=== PATIENT | female | born 2000 | race Two or more races ===

== ENCOUNTER 2019-11-29 21:14 | Emergency (ER) | payer MEDICAID, OTHER ==
[~2019-11-29] VITALS: Ht 165.1 cm; Wt 122.5 kg
[2019-11-29] MEDS ORDERED: ACETAMINOPHEN 325 MG TAB PO ONE (21:45)
[2019-11-30] MEDS ORDERED: cefTRIAXone SOD 1,000 MG VL IM ONE (01:15)
[2019-11-30] MEDS ORDERED: IBUPROFEN 600 MG TAB PO ONE (01:15)
[2019-11-30] MEDS ORDERED: methylPREDNISolone SOD SUCC 125 MG/2 ML VL IM ONE (01:15)
[2019-11-30] MEDS ORDERED: LIDOCAINE 1% HCL (LOCAL ANESTH.) INJ 20ML MDV ONE (01:16)
[2019-11-30] MEDS ORDERED: ACETAMINOPHEN 500 MG TAB PO ONE (01:45)
[2019-11-30] MEDS ORDERED: LIDOCAINE 1% HCL (LOCAL ANESTH.) INJ 20ML MDV IJ ONE (02:00)
[2019-11-30 02:05] LABS: Basophils # (auto) 0 10 ^3/uL (0-0.2); Basophils % (auto) 0.5 % (0.0-2.0); Eosinophils # (auto) 0.1 10 ^3/uL (0-0.8); Eosinophils % (auto) 0.9 % (0.0-7.0); Hematocrit 40.5 % (36.0-46.0); Hemoglobin 13.7 g/dL (12.2-16.2); Lymphocytes # (auto) 1.8 10 ^3/uL (0.4-5.4); Lymphocytes % (auto) 30.3 % (10.0-50.0); Mean Corpuscular Hemoglobin 28.4 pg (28.0-32.0); Mean Corpuscular Hgb Conc. 33.9 g/dL (32.0-36.0); Mean Corpuscular Volume 83.9 fL (80.0-100.0); Monocytes # (auto) 0.5 10 ^3/uL (0-1.3); Neutrophils # (auto) 3.5 10 ^3/uL (1.6-8.6); Neutrophils % (auto) 60.3 % (37.0-80.0); Nucleated Red Blood Cells % 0.1 %; Platelet Count (auto) 146 10^3/uL (140-450); Red Blood Cells 4.83 10^6/uL (4.0-5.20); Red Cell Distribution Width 14.4 % (11.8-14.3); White Blood Cell 5.8 10^3/uL (4.4-10.8)
[2019-11-30 02:21] LABS: Albumin 3.9 g/dL (3.4-5.0); BUN/Creatinine Ratio 10.1; Calcium 8.4 mg/dL (8.5-10.1); Potassium 3.6 mmol/L (3.5-5.1)
[2019-11-30 02:29] LABS: Bilirubin, Total 0.5 mg/dL (0.2-1.0); Total Protein 8.9 g/dL (6.4-8.2)
[2019-11-30 04:00] VITALS: BP 156/78
== END 2019-11-30 04:08 | disposition home or self-care (01) ==
LOC: ER 21:14
DX: U07.1 COVID-19 (principal); J98.11 Atelectasis; E86.0 Dehydration
CPT/HCPCS: 36415; 71045; 80053; 85025; 87070; 87804; 87880; 96372; 99284; J0696; J2001; J2930; U0003

== ENCOUNTER 2019-12-01 15:14 | Inpatient (IN) | payer MEDICAID ==
[~2019-12-01] VITALS: Ht 165.1 cm; Wt 123.4 kg
[2019-12-01] MEDS ORDERED: SODIUM CHLORIDE 0.9% 1,000 ML IV ONE ×2 (15:21)
[2019-12-01] MEDS ORDERED: hydrOXYchloroQUINE SULFATE 200 MG TAB PO ONE (15:30)
[2019-12-01] MEDS ORDERED: BUDESONIDE (INHALATION) 0.5 MG/2 ML NEB NEB ONE (15:30)
[2019-12-01] MEDS ORDERED: DOXYCYCLINE 100 MG TAB/CAP PO ONE (15:30)
[2019-12-01] MEDS ORDERED: ACETAMINOPHEN 500 MG TAB PO ONE (16:45)
[2019-12-01 16:47] LABS: Basophils # (auto) 0 10 ^3/uL (0-0.2); Basophils % (auto) 0.2 % (0.0-2.0); Eosinophils # (auto) 0 10 ^3/uL (0-0.8); Hematocrit 41.7 % (36.0-46.0); Hemoglobin 14.1 g/dL (12.2-16.2); Lymphocytes # (auto) 1.2 10 ^3/uL (0.4-5.4); Lymphocytes % (auto) 12.6 % (10.0-50.0); Mean Corpuscular Hemoglobin 28.4 pg (28.0-32.0); Mean Corpuscular Hgb Conc. 33.9 g/dL (32.0-36.0); Mean Corpuscular Volume 83.8 fL (80.0-100.0); Monocytes # (auto) 0.7 10 ^3/uL (0-1.3); Neutrophils # (auto) 7.5 10 ^3/uL (1.6-8.6); Neutrophils % (auto) 80.2 % (37.0-80.0); Nucleated Red Blood Cells % 0.1 %; Platelet Count (auto) 170 10^3/uL (140-450); Red Blood Cells 4.98 10^6/uL (4.0-5.20); Red Cell Distribution Width 14.5 % (11.8-14.3); White Blood Cell 9.4 10^3/uL (4.4-10.8)
[2019-12-01 17:03] LABS: Albumin 3.7 g/dL (3.4-5.0); Calcium 8.4 mg/dL (8.5-10.1); Potassium 3.7 mmol/L (3.5-5.1)
[2019-12-01 17:11] LABS: BUN/Creatinine Ratio 9.1; Bilirubin, Total 0.5 mg/dL (0.2-1.0); CRP High Sensitivity 2.31 mg/dL (< 0.3); Total Protein 8.9 g/dL (6.4-8.2)
[2019-12-01] MEDS ORDERED: PROMETHAZINE W/CODEINE 5 ML ORAL SYRUP PO ONE (18:45)
[2019-12-01] MEDS ORDERED: cefTRIAXone 1GM/50ML D5W 50 ML IV SCH (18:45)
[2019-12-01] MEDS ORDERED: HYDROmorphone HCL 2 MG/ML VL IV PRN (19:00)
[2019-12-01] MEDS ORDERED: HYDROcodone-ACET 5/325MG TAB PO PRN (19:00)
[2019-12-01] MEDS ORDERED: MORPHINE SULF INJ 2 MG/ML SYRINGE 1ML IV PRN ×2 (19:00)
[2019-12-01] MEDS ORDERED: NITROGLYCERIN 0.4 MG SL TAB SL PRN (19:00)
[2019-12-01] MEDS ORDERED: DOCUSATE SOD 100 MG CAP PO PRN (19:00)
[2019-12-01] MEDS ORDERED: ONDANSETRON HCL 4 MG/2 ML VIAL IV PRN (19:00)
[2019-12-01] MEDS ORDERED: TEMAZEPAM 15 MG CAP PO PRN (19:00)
[2019-12-01 19:09] LABS: INR 1.01 (0.9-1.15); Partial Thromboplastin Time 32.5 sec (23.64-32.05)
[2019-12-01] MEDS: cefTRIAXone 1GM/50ML D5W 50 ML IV SCH (19:46)
[2019-12-01 20:35] VITALS: BP 139/77
--- NOTE | 2019-12-01 20:35 | NUR ---
Telemetry admit from SHIMA MARTIN admitted to Telemetry unit. Patient oriented to YAMILEX GUNN RN primary RN, unit, room, bed, and unit policies regarding patient care and visiting hours. Patient now on continuous telemetry monitoring, tele box # 7 and telemetry reading on arrival to unit is sinus tachycardia. Patient placed on bedside oxygen at 2 liters via long tubing nasal cannula, patient's pulse oxygenation at 96%. Patient also weighed by bedscale and encouraged to call if they need something. All questions and concerns addressed, patient verbalized understanding. Bed in lowest locked position, side rails up x2, call light within reach. COVID [address] Will round every hour and as needed and continue to monitor.
[2019-12-01 21:45] VITALS: BP 152/101
[2019-12-01 22:00] VITALS: BP 139/77
[2019-12-01] MEDS ORDERED: REMDESIVIR 200 MG in NS 210ml LOADING DOSE ADULT IV ONE ×2 (22:00→23:00)
[2019-12-01] MEDS: SODIUM CHLOR 0.9% PF (SALINE LOCK) 10ML VIAL/SYR IV SCH (22:00)
[2019-12-01] MEDS: ALBUTEROL SULF HFA 90MCG INH 200DOSE IN SCH (22:11)
[2019-12-01] MEDS: BUDESONIDE (INHALATION) 180 MCG IH IN SCH (22:11)
[2019-12-01] MEDS: ACETAMINOPHEN 500 MG TAB PO PRN (23:29)
[2019-12-01] MEDS: PROMETHAZINE W/CODEINE 5 ML ORAL SYRUP PO SCH (23:29)
[2019-12-01] MEDS: DOXYCYCLINE 100 MG TAB/CAP PO SCH (23:30)
[2019-12-01] MEDS: ENOXAPARIN SOD 120 MG/0.8 ML SYRINGE SC SCH (23:30)
--- NOTE | 2019-12-01 23:30 | NUR ---
Ordered Remdesivir started at this time. Temperature 103.0 degrees Farenheit orally, 119 HR, 20 RR, 148/68 mm Hg, 96% pulse oxygenation. Tylenol PRN administered as ordered (see emar). Ice packs and cool wash clothes applied, blankets removed, temperature of room decreased, and ice water given to patient. No s/s of distress. Will continue to monitor.
--- NOTE | 2019-12-01 23:45 | NUR ---
Ordered Remdesivir continuing to infuse. Temperature 99.0 degrees Fahrenheit orally, 118 HR, 20 RR, 136/83 mm Hg, 94% pulse oxygenation. No s/s of distress. Will continue to monitor.
--- NOTE | 2019-12-02 00:30 | NUR ---
Ordered Remdesivir finished infusing at this time. Temperature 100.0 degrees Fahrenheit orally, 114 HR, 18 RR, 134/81 mm Hg, 94% pulse oxygenation. Cooling measures remain in place. No s/s of distress. Will continue to monitor.
[2019-12-02 02:05] LABS: Urine Bacteria NONE SEEN /hpf (None Seen); Urine Blood Negative /uL (Negative); Urine Mucus FEW (None Seen); Urine Specific Gravity 1.012 (1.001-1.035); Urine WBC 1 /hpf (0 - 5)
[2019-12-02 05:00] VITALS: BP 125/82
[2019-12-02] MEDS: SODIUM CHLOR 0.9% PF (SALINE LOCK) 10ML VIAL/SYR IV SCH ×3 (06:00→21:18)
[2019-12-02] MEDS: BUDESONIDE (INHALATION) 180 MCG IH IN SCH ×2 (06:25→22:00)
[2019-12-02] MEDS: ALBUTEROL SULF HFA 90MCG INH 200DOSE IN SCH ×3 (06:25→22:00)
[2019-12-02] MEDS: PROMETHAZINE W/CODEINE 5 ML ORAL SYRUP PO SCH ×3 (06:48→21:19)
--- NOTE | 2019-12-02 06:49 | NUR ---
Closing Note Patient lying in bed, awake and alert. Bed in lowest locked position, call light within reach. No s/s of distress. Will endorse care to dayshift RN.
--- NOTE | 2019-12-02 07:35 | NUR ---
Opening Note Received report from ordnance engineer RN. Patient is awake, alert and oriented x4. Patient is on 4L NC. Patient denies pain at this time. Reviewed plan of care with patient, patient verbalized understanding. Bed in low and locked position, call light within reach. Will continue to monitor Q1 hour and PRN.
[2019-12-02] MEDS: cefTRIAXone 1GM/50ML D5W 50 ML IV SCH (08:29)
[2019-12-02] MEDS: ENOXAPARIN SOD 120 MG/0.8 ML SYRINGE SC SCH ×2 (08:30→21:20)
[2019-12-02] MEDS: CHOLECALCIFEROL (VITD3) 2,000 UNIT CAP PO SCH (08:30)
[2019-12-02] MEDS: ZINC SULFATE 220mg CAP or TAB PO SCH (08:30)
[2019-12-02] MEDS: ASCORBIC ACID 1,000 MG TAB PO SCH (08:30)
[2019-12-02] MEDS: DOXYCYCLINE 100 MG TAB/CAP PO SCH ×2 (08:31→21:20)
[2019-12-02 09:00] VITALS: BP 133/87
[2019-12-02 10:16] LABS: Basophils # (auto) 0 10 ^3/uL (0-0.2); Basophils % (auto) 0.3 % (0.0-2.0); Eosinophils # (auto) 0 10 ^3/uL (0-0.8); Eosinophils % (auto) 0.1 % (0.0-7.0); Hemoglobin 12.4 g/dL (12.2-16.2); Lymphocytes % (auto) 22.4 % (10.0-50.0); Mean Corpuscular Hemoglobin 28.4 pg (28.0-32.0); Mean Corpuscular Hgb Conc. 34.3 g/dL (32.0-36.0); Mean Corpuscular Volume 82.9 fL (80.0-100.0); Monocytes # (auto) 0.7 10 ^3/uL (0-1.3); Monocytes % (auto) 7.8 % (0.0-12.0); Neutrophils # (auto) 6.3 10 ^3/uL (1.6-8.6); Neutrophils % (auto) 69.4 % (37.0-80.0); Nucleated Red Blood Cells % 0.2 %; Platelet Count (auto) 147 10^3/uL (140-450); Red Blood Cells 4.35 10^6/uL (4.0-5.20); Red Cell Distribution Width 14.4 % (11.8-14.3)
[2019-12-02 10:46] LABS: Albumin 3.1 g/dL (3.4-5.0); Calcium 7.9 mg/dL (8.5-10.1); Potassium 3.5 mmol/L (3.5-5.1)
[2019-12-02 10:49] LABS: BUN/Creatinine Ratio 12.2; Bilirubin, Total 0.7 mg/dL (0.2-1.0); Total Protein 7.9 g/dL (6.4-8.2)
[2019-12-02] MEDS: ACETAMINOPHEN 500 MG TAB PO PRN (12:14)
[2019-12-02 13:13] VITALS: BP 149/85
[2019-12-02 17:00] VITALS: BP 117/80
[2019-12-02] MEDS: REMDESIVIR 100mg in NS 230ml DAILYx4DAYS (NO VENT) IV SCH (17:39)
--- NOTE | 2019-12-02 17:40 | NUR ---
Remdesiver started Medication administered per orders. Patient verbalized understanding of medication and possible side effects. Blood pressure 118/77, heart rate 89, oxygen saturation 92% on 4L NC, respirations 16, temperature 98.1. Will continue to monitor Q1 and PRN.
--- NOTE | 2019-12-02 17:50 | NUR ---
Remdesivir infusing No signs or symptoms of reaction noted at this time. Blood [id number], heart rate 87, oxygen saturation 91% on 4L NC, respirations 16. Patient educted and instructed to call for assistance if any symptoms of reaction occur. Patient verbalized understanding. Will continue to monitor Q1 hour and PRN.
--- NOTE | 2019-12-02 18:47 | NUR ---
Remdesivir completed No signs or symptoms of reaction noted at this time. Patient tolerated well. Blood pressure 126/80, heart rate 99, oxygen satuation 92% on 4L NC, respirations 16. Will continue to monitor Q1 hour and PRN.
--- NOTE | 2019-12-02 19:07 | NUR ---
Closing Note Report given to sugar mill worker RN. No signs or symptoms of distress noted at this time.
[2019-12-02 22:00] VITALS: BP 119/70
--- NOTE | 2019-12-02 22:19 | NUR ---
Spoke with Destiny from [facility] regarding patient's convalescent plasma order. Per Destiny, patient will need a type and screen and possible confirmation for [facility] that patient is COVID positive on this visit. Destiny was able to view that the patient did test positive on 11/30/19 and that the COVID swab was sent out to [facility] for processing. Destiny was not certain if a second positive COVID swab would be necessary for [facility] to allow for the release of the convalescent plasma for the patient. Informed Charge Nurse Francine SPRAGUE, per Francine orozco RN follow up with MD in the morning for clarification. Consents for convalescent plasma printed and placed in the front of patient's hard chart. Will continue to monitor patient.
[2019-12-03 05:00] VITALS: BP 111/72
[2019-12-03 05:39] LABS: BUN/Creatinine Ratio 14.5; Calcium 8.2 mg/dL (8.5-10.1); Potassium 3.4 mmol/L (3.5-5.1)
[2019-12-03 05:48] LABS: CRP High Sensitivity 7.66 mg/dL (< 0.3)
[2019-12-03] MEDS: SODIUM CHLOR 0.9% PF (SALINE LOCK) 10ML VIAL/SYR IV SCH ×3 (06:21→21:58)
[2019-12-03] MEDS: PROMETHAZINE W/CODEINE 5 ML ORAL SYRUP PO SCH ×3 (06:24→21:58)
[2019-12-03] MEDS: ALBUTEROL SULF HFA 90MCG INH 200DOSE IN SCH ×3 (06:40→21:19)
[2019-12-03] MEDS: BUDESONIDE (INHALATION) 180 MCG IH IN SCH ×2 (06:41→21:19)
--- NOTE | 2019-12-03 06:48 | NUR ---
Closing Note Patient lying in bed, awake and alert. Bed in lowest locked position, side rails up x2, call light within reach. No s/s of distress. Will endorse care to dayshift RN.
[2019-12-03 08:45] VITALS: BP 111/71
[2019-12-03] MEDS: ZINC SULFATE 220mg CAP or TAB PO SCH (10:59)
[2019-12-03] MEDS: CHOLECALCIFEROL (VITD3) 2,000 UNIT CAP PO SCH (10:59)
[2019-12-03] MEDS: ASCORBIC ACID 1,000 MG TAB PO SCH (10:59)
[2019-12-03] MEDS: DOXYCYCLINE 100 MG TAB/CAP PO SCH ×2 (10:59→21:58)
[2019-12-03] MEDS: ENOXAPARIN SOD 120 MG/0.8 ML SYRINGE SC SCH ×2 (10:59→21:58)
[2019-12-03 12:58] VITALS: BP 111/78
[2019-12-03 17:07] VITALS: BP 116/71
[2019-12-03] MEDS: REMDESIVIR 100mg in NS 230ml DAILYx4DAYS (NO VENT) IV SCH (17:25)
--- NOTE | 2019-12-03 17:25 | NUR ---
PRE ADMINISTRATION REMDESIVIR VITALS: T98.1, HR65, RR20, O2 97%, BP 116/71
--- NOTE | 2019-12-03 18:40 | NUR ---
INTRA REMDESIVIR ADMINISTRATION VITALS: T98.9, HR91, RR18, O2 98%, BP 119/75
--- NOTE | 2019-12-03 19:20 | NUR ---
POST REMDESIVIR ADMINISTRATION VITALS: T98.4, HR86, RR20, O2 97%, BP 113/69. PT TOLERATED WELL. NO S/S OF DISTRESS. WILL ENDORSE TO NIGHT NURSE.
[2019-12-03 22:14] VITALS: BP 120/81
[2019-12-04] VITALS (9 sets, daily range): BP systolic 101–136; BP diastolic 60–76
[2019-12-04] MEDS: SODIUM CHLOR 0.9% PF (SALINE LOCK) 10ML VIAL/SYR IV SCH ×3 (06:10→22:07)
[2019-12-04] MEDS: PROMETHAZINE W/CODEINE 5 ML ORAL SYRUP PO SCH ×3 (06:11→22:07)
[2019-12-04] MEDS: BUDESONIDE (INHALATION) 180 MCG IH IN SCH ×2 (06:29→22:24)
[2019-12-04] MEDS: ALBUTEROL SULF HFA 90MCG INH 200DOSE IN SCH ×3 (06:29→22:24)
[2019-12-04 07:52] LABS: Calcium 8.3 mg/dL (8.5-10.1); Potassium 3.6 mmol/L (3.5-5.1)
[2019-12-04 08:03] LABS: BUN/Creatinine Ratio 14.8; CRP High Sensitivity 4.63 mg/dL (< 0.3)
--- NOTE | 2019-12-04 09:09 | NUR ---
Weekend solutions development analyst-I did not receive a call regarding the social service consult (12/01) for this patient.
[2019-12-04] MEDS: CHOLECALCIFEROL (VITD3) 2,000 UNIT CAP PO SCH (09:33)
[2019-12-04] MEDS: ENOXAPARIN SOD 120 MG/0.8 ML SYRINGE SC SCH (09:33)
[2019-12-04] MEDS: DOXYCYCLINE 100 MG TAB/CAP PO SCH ×2 (09:33→22:07)
[2019-12-04] MEDS: ASCORBIC ACID 1,000 MG TAB PO SCH (09:33)
[2019-12-04] MEDS: ZINC SULFATE 220mg CAP or TAB PO SCH (09:33)
[2019-12-04] MEDS ORDERED: IPRIH IN (12:26)
[2019-12-04] MEDS ORDERED: ALBUAER3 IN (12:26)
[2019-12-04] MEDS ORDERED: DOX100T PO (12:28)
--- NOTE | 2019-12-04 13:26 | NUR ---
LEFT MESSAGE FOR DR ENGEL REGARDING PATIENTS POSSIBLE D/C. PER DR. BOSS, PATIENT OK TO D/C WITH PULMONOLOGY APPROVAL. PATIENTS FAMILY HAS CONCERNS WITH PATIENT COMING HOME TOO SOON, AND PATIENT HAS ONLY RECEIVED 2 OF 4 REMDESIVIR TREATMENTS.
--- NOTE | 2019-12-04 13:31 | NUR ---
PROVIDED UPDATE TO PATIENTS CHELSIE HARDEN,
--- NOTE | 2019-12-04 14:21 | NUR ---
02 SATURATION CHECK 87% WALKING WITHOUT OXYGEN 92% WALKING WITH OXYGEN AT 3L 95% SITTING WITH OXYGEN AT 3L
--- NOTE | 2019-12-04 15:07 | NUR ---
Assessment Patient is a 19- year-old female who is alert and oriented. Prior to admission patient lived home with family and function independently. Per patient she can care for her own ADLs. Per patient she does not have any medical equipment now or home oxygen. Per patient she will return to her prior living arrangements post discharge and family will transport him home. Patient PCP is Dr. Hughes. Advise patient to follow up with her primary doctor after discharge. Advised patient there is a social service consult for home health safety evaluation and home oxygen. Informed patient clinical information will be faxed to contracted agency for [employer] [facility] and [facility] for the oxygen. Informed patient she has the right to participate in all discharge planning. Patient verbalized understanding. Faxed clinical information to [employer] and [facility] requesting [facility] Per Sarah with [employer] [phone] patient has been accepted and service to start within 24-48hrs upon d/c day. Per Lashae with [facility] [phone] they will deliver oxygen portable to front lobby between 15:30-16:30 and concentrate to home between. CELESTINE Marquez was informed. Addendum: 12/04/19 at 1520 by BRITTANY BURNETT Amended: Links added.
--- NOTE | 2019-12-04 15:22 | NUR ---
obatin authorization from [facility] for [facility] [id number] and [facility] [id number].
--- NOTE | 2019-12-04 16:02 | NUR ---
O2 DELIVERED PER BRITTANY IN , PATIENTS O2 FOR HOME HAS BEEN DELIVERED AND IS DOWNSTAIRS AT THE VOLUNTEER DESK
[2019-12-04] MEDS: REMDESIVIR 100mg in NS 230ml DAILYx4DAYS (NO VENT) IV SCH (17:10)
--- NOTE | 2019-12-04 19:13 | NUR ---
PATIENTS HOME 02 BEDSIDE WITH PATIENT FOR D/C
--- NOTE | 2019-12-04 20:00 | NUR ---
Opening Shift Note Assumed care of patient, awake and alert x4. Patient denies shortness of breath or pain at this time. No sign/symptoms of distress noted or verbalized at this time. Instructed on plan of care and encouraged patient to call for assistance as needed, patient verbalized understanding. Oxygen tank noted at the bedside. Per patient oxygen concentrator has been delivered to her house. Bed is locked in lowest position, side rails x 2 are up, and call light is within reach.
--- NOTE | 2019-12-04 20:13 | NUR ---
Paged Dr. Dos Santos Left message on Dr. Dos Santos's exchange regarding clearance from pulmonology stand point. Left call back number and extension, awaiting call back.
--- NOTE | 2019-12-04 22:24 | NUR ---
RT NOTE PT WAS SEEN BY RT FOR MDI TX. PT TOLERATES WELL VIA SPACER. PT RINSED MOUTH WITH WATER POST MDI TX. HR 90, RR18, BS CLEAR/DIMINISHED, POX 96% ON 2L NASAL CANNULA. CONT ORDERED Addendum: 12/04/19 at 2235 by Marnie Calle RT Amended: Links added.
--- NOTE | 2019-12-04 22:25 | NUR ---
Left Message on Dr. Garcia's exchange Left message on Dr. Garcia's exchange regarding discharge order and obtaining clearance from tile professional stand point. Left call back number and extension. Awaiting call back.
[2019-12-05] VITALS (8 sets, daily range): BP systolic 108–121; BP diastolic 57–78
[2019-12-05 05:03] LABS: Basophils # (auto) 0 10 ^3/uL (0-0.2); Basophils % (auto) 0.4 % (0.0-2.0); Eosinophils # (auto) 0.3 10 ^3/uL (0-0.8); Eosinophils % (auto) 4.3 % (0.0-7.0); Hematocrit 35.4 % (36.0-46.0); Hemoglobin 11.9 g/dL (12.2-16.2); Lymphocytes # (auto) 1.6 10 ^3/uL (0.4-5.4); Lymphocytes % (auto) 26.6 % (10.0-50.0); Mean Corpuscular Hemoglobin 28.2 pg (28.0-32.0); Mean Corpuscular Hgb Conc. 33.7 g/dL (32.0-36.0); Mean Corpuscular Volume 83.8 fL (80.0-100.0); Monocytes # (auto) 0.6 10 ^3/uL (0-1.3); Monocytes % (auto) 10.2 % (0.0-12.0); Neutrophils # (auto) 3.5 10 ^3/uL (1.6-8.6); Neutrophils % (auto) 58.5 % (37.0-80.0); Nucleated Red Blood Cells % 0.1 %; Platelet Count (auto) 209 10^3/uL (140-450); Red Blood Cells 4.22 10^6/uL (4.0-5.20); Red Cell Distribution Width 14.1 % (11.8-14.3)
[2019-12-05] MEDS: SODIUM CHLOR 0.9% PF (SALINE LOCK) 10ML VIAL/SYR IV SCH ×2 (06:07→13:53)
[2019-12-05] MEDS: PROMETHAZINE W/CODEINE 5 ML ORAL SYRUP PO SCH ×2 (06:07→13:53)
[2019-12-05] MEDS: ALBUTEROL SULF HFA 90MCG INH 200DOSE IN SCH ×2 (06:37→14:12)
[2019-12-05] MEDS: BUDESONIDE (INHALATION) 180 MCG IH IN SCH (06:37)
--- NOTE | 2019-12-05 06:43 | NUR ---
Received Call from Mom Received call from mom, after obtaining and verifying password updated mother on patient status. Per mother she does not feel comfortable with daughter coming home due to mother speaking with daughter on the phone last night and hearing patient cough "nonstop". Mother is also requesting daughter to have last dose of Remdesivir before discharging patient home. Will rely information to day shift RN.
[2019-12-05] MEDS: ZINC SULFATE 220mg CAP or TAB PO SCH (09:11)
[2019-12-05] MEDS: DOXYCYCLINE 100 MG TAB/CAP PO SCH (09:11)
[2019-12-05] MEDS: ASCORBIC ACID 1,000 MG TAB PO SCH (09:12)
[2019-12-05] MEDS: CHOLECALCIFEROL (VITD3) 2,000 UNIT CAP PO SCH (09:12)
--- NOTE | 2019-12-05 09:30 | NUR ---
Left message for Marianegl Napoles that patient was not discharged yesterday, still pending approval from pulmonology
[2019-12-05] MEDS ORDERED: DEXT1SYP9 PO (11:53)
--- NOTE | 2019-12-05 11:59 | NUR ---
Left message for Dr Garcia to find out if patient is clear for d/c
[2019-12-05] MEDS ORDERED: guaiFENesin-DM 100/10mg/5ml SYR PO PRN (12:00)
--- NOTE | 2019-12-05 14:20 | NUR ---
Spoke to Dr Garcia. Patient is ok to D/C after receiving her last dose of Remdesivir.
[2019-12-05] MEDS: REMDESIVIR 100mg in NS 230ml DAILYx4DAYS (NO VENT) IV SCH (17:12)
--- NOTE | 2019-12-05 18:40 | NUR ---
Discharge instructions given as ordered. Encourage to follow up with PMD as instructed on December 06. Address and phone number provided. All questions and concerns addressed. Patient verbalized understanding. Patient left with home 02 and Home Health Services will contact patient within 24-48 hours of discharge. Medication reconciliation form completed and copy given to patient. No home medications held in Pharmacy, and no needed vaccines given, as patient declined. IV removed with catheter intact and pressure dressing applied. Telemetry unit returned to ICU. Patient taken to vehicle via wheelchair with all personal belongings, accompanied by staff member. No distress noted at time of departure.
== END 2019-12-05 18:40 | disposition home health service (06) | DRG 137 ==
LOC: ER 15:14 → TELE 15:15 → TELE-EAST 19:41
PROVIDERS: ADMIT Internal Medicine; ATTEND Internal Medicine
DX: U07.1 COVID-19 (principal); J12.89 Other viral pneumonia; J98.11 Atelectasis; J96.01 Acute respiratory failure with hypoxia; E66.01 Morbid (severe) obesity due to excess calories; Z68.42 Body mass index [BMI] 45.0-49.9, adult; Z83.3 Family history of diabetes mellitus; J15.9 Unspecified bacterial pneumonia
CPT/HCPCS: 36415; 71045; 80048; 80053; 81001; 82728; 83036; 83615; 83735; 84443; 85025; 85379; 85610; 85730; 86141; 86850; 86900; 86901; 87040; 93005; 94640; 96361; 96365; G0378; J0696

== ENCOUNTER → 2019-12-15 | Outpatient (CLI) | payer OTHER ==
[~2019-12-15] MED LIST: ALBUAER3 IN; DEXT1SYP9 PO; DOX100T PO; IPRIH IN
== END | disposition home or self-care (01) ==
LOC: LAB 08:52
PROVIDERS: ATTEND Nurse Practitioner Family
DX: Z03.818 Encounter for observation for suspected exposure to other biological agents ruled out (principal)